=== PATIENT | female | born 1980 | race Caucasian/White ===

== ENCOUNTER 2016-11-03 14:02 | Emergency (ER) | payer OTHER ==
[~2016-11-03] VITALS: Ht 157.5 cm; Wt 104.0 kg
[2016-11-03 14:09] VITALS: Ht 157.5 cm; Wt 104.0 kg
--- NOTE | 2016-11-03 14:44 | ERD ---
ER Documentation Chief Complaint Date/Time DATE: 11/03/16 TIME: 14:44 Chief Complaint sent from md for eval, no heart tones HPI 36-year-old female who is approximately 12 weeks is sent here by her PCP for evaluation. Per PCPs note, no heart tone was noted on Doppler. Patient is SAB 1, LMP 08/05/2016. Patient denies vaginal bleeding, denies pelvic pain. Denies fever or chills. ROS All systems reviewed and are negative except as per history of present illness. PMhx/Soc Medical and Surgical Hx: pt denies Medical Hx, pt denies Surgical Hx Hx Alcohol Use: No Hx Substance Use: No Hx Tobacco Use: No Smoking Status: Never smoker Physical Exam Vitals Vital Signs Date Time Temp Pulse Resp B/P Pulse Ox O2 Delivery O2 Flow Rate FiO2 11/03/16 14:09 98.6 66 18 112/67 98 Physical Exam General: Well-developed, well-nourished, conscious and coherent, in no distress Skin: Warm and dry without rash, good texture and turgor Head: Normocephalic without evidence of trauma Eyes: Sclera and conjunctivae normal; pupils equal, round, and reactive to light; extraocular movements are intact Chest: Normal AP diameter. Good expansion without retractions. Nontender. Lungs are clear to auscultate bilaterally with good tidal volume Heart: Regular rate and rhythm. No murmur, rub, or gallops heard Abdomen: Soft and nontender without masses, guarding, or rebound. Bowel sounds are active. No hepatosplenomegaly Back: Without spinal or CVA tenderness Pelvis: Nontender to palpation and stable to compression Extremities: Full range of motion. Good strength bilaterally. No clubbing, cyanosis, or edema. Peripheral pulses are intact. Sensation intact Neuro: Alert and oriented 4, GCS 15. Cranial nerves grossly intact. Motor and sensory exams nonfocal. Moves all extremities. Speech clear. Gait normal Results 24 hrs Laboratory Tests Test 11/03/16 14:34 Lab Scanned Report [id number] PROCEDURE: US OB. CLINICAL INDICATION: No heart tones detected TECHNIQUE: Transabdominal and endovaginal imaging of the gravid uterus is available for review COMPARISON: None available FINDINGS: There is a single intrauterine demonstrating a heart rate of 156 bpm. The crown-rump length equals 6.0 cm, giving an estimated gestational age of 12 weeks 4 days by ultrasound criteria. No subchorionic hemorrhage is identified. The ovaries are unremarkable. IMPRESSION: Single live intrauterine with an estimated gestational age of 12 weeks 4 days by ultrasound criteria and an estimated date of delivery of 2017. RPTAT: HH .Mirella Escobar MD, MD Date Time Electronically viewed and signed by .Mirella Escobar MD, MD on 11/03/2016 13 :51 .G/ CC: CORNELIA VELAZQUEZ. JACQUARD PLATE MAKER Procedures/MDM Note: There was a mistake regarding patient's account, laboratory testing and imaging results may not be linked automatically. OB ultrasound showed a single intrauterine with heart rate of 156 bpm , estimated gestational age of 12 weeks 4 days. Slight leukocytosis of 11.1 is noted on CBC, otherwise unremarkable. UA has 2+ ketones, [place] [address].0. All are within normal limits. Patient is informed of the ultrasound and testing results. Patient advised to follow-up with her PCP or OB for continued care. Patient appears well, stable for discharge and outpatient management. Medical decision making shared with patient and family. Education provided to patient and family. Patient and family expressed understanding of the plan. Medications on discharge: None. Follow-up: Primary care provider in 2-3 days or return to ED if worse. Disclaimer: Inadvertent spelling and grammatical errors are likely due to EHR/ dictation software use and do not reflect on the overall quality of patient care. Also, please note that the electronic time recorded on this note does not necessarily reflect the actual time of the patient encounter. Departure Diagnosis: Primary Impression: Intrauterine normal Trimester: first trimester Qualified Code: Z34.91 - Normal in first trimester Condition: Stable Patient Instructions: , Established, Normal Symptoms Referrals: TECHNICAL SUPPORT SPECIALIST [place] [id number] [id number] OFFICE FAX KARLO ESCOTO [address] [place] [address] [address] MARTÍNEZ [address] [address] [place] [address] [address] [facility] [address] [facility] [address] [address] MAKI [facility] [address] [place] [address] [facility] [address] [place] [address] [phone] [address] [facility] [address] - DR HERNANDEZ ALLYSSA [address] [facility]. [address], [place] [address] [address] [place], [place] [address] [facility]. [address], [place] [address] [address] JENKINS, [facility] [address] [place], [place] [address] Additional Instructions: Call your primary care doctor TOMORROW for an appointment during the next 2-3 days.See the doctor sooner or return here if your condition worsens before your appointment time. CORNELIA VELAZQUEZ NP Nov 03, 2016 14:44
== END 2016-11-03 15:10 | disposition home or self-care (01) ==
LOC: FTE 14:02
DX: Z34.91 Encounter for supervision of normal pregnancy, unspecified, first trimester (principal)

== ENCOUNTER 2016-12-21 16:07 | Emergency (ER) | payer OTHER ==
[~2016-12-21] VITALS: Ht 160 cm; Wt 103.0 kg
[2016-12-21 16:16] VITALS: Ht 160 cm; Wt 103.0 kg
--- NOTE | 2016-12-21 19:19 | ERD ---
ER Documentation Chief Complaint Chief Complaint vaginal discharge this morning, 19 weeks HPI This 1 miscarriage,19 week female present to ED for evaluation of watery d/c pt is having to wear a pad, called OB told to cone to ED , denies vaginal bleeding, back pain, reports low pelvic pain ROS All systems reviewed and are negative except as per history of present illness. Allergies Allergies: Coded Allergies: No Known Allergy (Unverified , 12/21/16) PMhx/Soc Medical and Surgical Hx: pt denies Medical Hx, pt denies Surgical Hx Hx Alcohol Use: No Hx Substance Use: No Hx Tobacco Use: No Smoking Status: Never smoker Physical Exam Vitals Vital Signs Date Time Temp Pulse Resp B/P Pulse Ox O2 Delivery O2 Flow Rate FiO2 12/21/16 16:16 98.4 75 18 120/60 99 Physical Exam Const: She well-hydrated well-appearing 2 para 0 19 week female in no acute distress Head: Eyes: ENT: Normal External Ears, Nose and Mouth. Neck: Resp: Clear to auscultation bilaterally through the rhonchi Cardio: Regular rate and rhythm, no murmurs Abd: 's abdomen Pelvic Exam: Coating And Baking Operator present External Genitalia: Normal Skin, labia majora and labia minora normal with no rash lesion or discharge noted. PH paper returns from green to yellow indicating a pH of 4.5, and no evidence of amniotic fluid Back: No midline or flank tenderness Ext: No cyanosis, or edema Neur: Awake and alert Psych: Normal Mood and Affect Result Diagram: 12/21/161939 Results 24 hrs Laboratory Tests Test 12/21/16 19:40 White Blood Count 12.510^3/ul Red Blood Count 4.7510^6/ul Hemoglobin 13.1g/dl Hematocrit 39.3% Mean Corpuscular Volume 82.7fl Mean Corpuscular Hemoglobin 27.6pg Mean Corpuscular Hemoglobin Concent 33.3g/dl Red Cell Distribution Width 13.6% Platelet Count 32035^3/UL Mean Platelet Volume 10.7fl Neutrophils % 68.9% Lymphocytes % 25.0% Monocytes % 3.8% Eosinophils % 1.8% Basophils % 0.2% Nucleated Red Blood Cells % 0.0/100WBC Neutrophils # 8.610^3/ul Lymphocytes # 3.110^3/ul Monocytes # 0.510^3/ul Eosinophils # 0.210^3/ul Basophils # 0.010^3/ul Nucleated Red Blood Cells # 0.010^3/ul Urine Color YELLOW Urine Clarity CLOUDY Urine pH 5.0 Urine Specific Nesbit 1.017 Urine Ketones 2+mg/dL Urine Nitrite NEGATIVEmg/dL Urine Bilirubin NEGATIVEmg/dL Urine Urobilinogen NEGATIVEmg/dL Urine Leukocyte Esterase 1+Brendan/ul Urine Microscopic RBC 13/HPF Urine Microscopic WBC 16/HPF Urine Squamous Epithelial Cells FEW/HPF Urine Bacteria MANY/HPF Urine Mucus MODERATE/HPF Urine Hemoglobin NEGATIVEmg/dL Urine Glucose NEGATIVEmg/dL Urine Total Protein 1+mg/dl Beta HCG, Quantitative 89092.0mIU/ml Current Medications Medications (Trade) Dose Ordered Sig/Bernard Route PRN Reason Start Time Stop Time Status Last Admin Dose Admin Acetaminophen (Tylenol Tab) 650 mg ONCE ONCE PO 12/21/16 19:30 12/21/16 19:31 DC 12/21/16 19:37 Interpretation text CBC shows no evidence of hemorrhage elevated at 12.5, Mrs. positive for leukocytosis suggestive of infection Procedures/MDM ROCEDURE: Obstetrical ultrasound greater than 14 weeks CLINICAL INDICATION: Clear vaginal discharge TECHNIQUE: Real time sonographic imaging of the gravid uterus is performed transabdominally and multiple static smith scale and Doppler images are submitted for review as are measurements. The images are reviewed on the PACS. COMPARISON: No relevant exams are available FINDINGS: There is a single living intrauterine gestation in cephalic presentation. The heart beat is estimated at 159 bpm. The measurements are as follows: AC: 14.45 cm FL: 3.12 cm The head is too caudal in position for measurement. Estimated gestational age is 19 weeks 5 days. The estimated date of delivery is 05/12/2017. The estimated weight is 320 grams. Placenta is posterior and grade 1. There is no evidence of placenta previa or abruption. A uterine contraction is demonstrated. The amniotic fluid is normal, the maximum vertical pocket estimated at 4.8 cm. RPTAT:HJJR IMPRESSION: 1. Single viable intrauterine gestation estimated at 19 weeks 5 days with the estimated date of delivery 05/12/2017. 2. Normal amount of amniotic fluid the maximum vertical pocket 4.8 cm. 3. head is too caudal in position for accurate head circumference and biparietal diameter measurements. Physician Florentino Date Time Electronically viewed and signed by Physician Florentino on 12/21/2016 23:14 This 36-year-old 2 para 0 female presents to the emergency department for evaluation of clear odorless vaginal discharge using a akosua-pad to keep underwear clean, patient denies any vaginal bleeding, nausea, vomiting, dysuria , or pelvic pain. Emergency room course includes history and physical exam, patient reports 19 weeks , diagnostic lab testing, no evidence of age, WBCs slightly elevated at 12, urinalysis positive for leukocytosis suggestive of infection, vaginal inspection proves normal vaginal anatomy, no speculum or digital exam performed. PH paper shows a change from green to yellow indicating pH of 4.5. OB ultrasound greater than 14 weeks impression single viable intrauterine gestation approximately 19 weeks 5 days with estimated date of delivery on 05/12/2017, normal amount of amniotic fluid. The maximum vertical pocket 4.8 cm. head is to coddled in position for accurate head circumference. This case discussed with supervising physician Dr. Mccauley, patient will be discharged home to follow-up with SYSTEMS ANALYST ENGINEER. Treated with Keflex 500 mg 3 times daily 7 days for urinary tract infection, all other findings are normal. Return to emergency department for vaginal bleeding, cramping, or if symptoms fail to improve as anticipated Patient is stable with no new complaints during ER course, clinically there is no current evidence to suggest meningitis, sepsis, acute abdomen, threatened miscarriage, pyelonephritis or any other emergent condition appearing to require further evaluation or hospitalization. I feel the patient is stable for discharge at this time. I have discussed results, examination findings, the treatment plan with the patient and family present prior to discharge. Indications for emergent reevaluation, side effects of medication were also discussed. All questions were answered. Patient verbalizes understanding and agrees with plan of care. Departure Diagnosis: Primary Impression: UTI (urinary tract infection) Urinary tract infection type: acute cystitis Hematuria presence: without hematuria Qualified Code: N30.00 - Acute cystitis without hematuria Condition: Good Patient Instructions: Understanding Urinary Tract Infections (UTIs) Additional Instructions: Thank you for for coming to [facility] for your care today. Please ask your nurse or provider if you have questions about your care today and do not leave until all your questions have been answered. Please use any medications given as directed and follow-up with your doctor (or the doctor you were referred to) in the next 2-3 days. If you do not have a primary care doctor you may follow up at the [facility] (listed below). You may also use motrin and tylenol as needed for fever and/or pain unless instructed otherwise by your provider or nurse. Indications for more urgent follow-up have been discussed, but you may return to the Emergency Department at ANY time for any worrisome or worsening symptoms. If you have abdominal pain, please know that no test or exam you received is perfect and you should follow up within 8 hours for continued pain. If you had any imaging studies today, such as an X-Ray or CT Scan, these studies will be reviewed later by a radiologist. You will be called if there are important findings that were not identified today, so make sure the contact information you provided at registration is correct. If you received any narcotic pain control medicine today, such as Vicodin, Morphine or Dilaudid, your coordination and judgment may be affected for a number of hours. Please do not drive or operate heavy machinery, and you may want someone to assist you at home. If you were given a prescription for narcotic medication, be aware that it is very addictive- use sparingly and only if necessary. NIKKI SANDY Dec 21, 2016 19:19
[2016-12-21] MEDS ORDERED: ACETAMINOPHEN 325 MG TAB PO ONE (19:30)
--- NOTE | 2016-12-21 23:14 | RADRPT ---
PROCEDURE: Obstetrical ultrasound greater than 14 weeks CLINICAL INDICATION: Clear vaginal discharge TECHNIQUE: Real time sonographic imaging of the gravid uterus is performed transabdominally and mu ltiple static smith scale and Doppler images are submitted for review as are measurements. The image s are reviewed on the PACS. COMPARISON: No relevant exams are available FINDINGS: There is a single living intrauterine gestation in cephalic presentation. The heart beat is estimated at 159 bpm. The measurements are as follows: AC:14.45 cm FL:3.12 cm The head is too caudal in position for measurement. Estimated gestational age is 19 weeks 5 days. The estimated date of delivery is 05/12/2017. The estimated weight is 320 grams. Placenta is posterior and grade 1. There is no evidence of placenta previa or abruption. A uterine contraction is demonstrated. The amniotic fluid is normal, the maximum vertical pocket estimated at 4.8 cm. RPTAT:HJJR IMPRESSION: 1. Single viable intrauterine gestation estimated at 19 weeks 5 days with the estimated date of deli very 05/12/2017. 2. Normal amount of amniotic fluid the maximum vertical pocket 4.8 cm. 3. head is too caudal in position for accurate head circumference and biparietal diameter eric surements. Physician Florentino Date Time Electronically viewed and signed by Physician Florentino on 12/21/2016 23:14 /
[2016-12-21] MEDS ORDERED: ACET500C5 PO (23:34)
[2016-12-21] MEDS ORDERED: CEPH-443 PO (23:34)
[2016-12-21 23:45] VITALS: BP 125/73; PULSE 81; RESP 18
== END 2016-12-21 23:45 | disposition home or self-care (01) ==
LOC: FTE 16:07
DX: O23.12 Infections of bladder in pregnancy, second trimester (principal); N89.8 Other specified noninflammatory disorders of vagina; R10.2 Pelvic and perineal pain; Z3A.19 19 weeks gestation of pregnancy
CPT/HCPCS: 36415; 76805; 81001; 84702; 85025; Z7502; Z7610

== ENCOUNTER 2017-03-18 12:53 | Outpatient (CLI) | END 2017-03-18 16:25 | disposition home or self-care (01) ==

== ENCOUNTER 2017-03-20 08:06 | Outpatient (CLI) | END 2017-03-20 09:03 | disposition home or self-care (01) ==

== ENCOUNTER 2017-04-27 09:23 | Outpatient (CLI) | END 2017-04-27 11:15 | disposition home or self-care (01) ==

== ENCOUNTER 2017-05-01 09:13 | Outpatient (CLI) | END 2017-05-01 10:15 | disposition home or self-care (01) ==

== ENCOUNTER 2017-05-11 06:35 | Inpatient (IN) | END 2017-05-15 18:50 | disposition home or self-care (01) | DRG 766 ==

== ENCOUNTER 2018-01-24 16:49 | Emergency (ER) | END 2018-01-24 19:47 | disposition home or self-care (01) ==

== ENCOUNTER 2018-01-25 04:34 | Emergency (ER) | END 2018-01-25 06:40 | disposition home or self-care (01) ==

== ENCOUNTER 2018-08-15 17:20 | Emergency (ER) | payer OTHER ==
[~2018-08-15] VITALS: Ht 165.1 cm; Wt 105.6 kg
[~2018-08-15 17:20] MED LIST: CIPR-193 PO; DICY10CA40 PO; HYDR-3980 PO; IBUP-1561 PO; IBUP800T48 PO; LEVO112T56 PO; ONDA4TAB8 PO; PRED20TA PO; PREN1TAB79 PO
[2018-08-15 17:52] VITALS: BP 131/72; PULSE 75; RESP 18; Ht 165.1 cm; Wt 105.6 kg
[2018-08-15] MEDS ORDERED: ACETAMINOPHEN 500 MG TAB PO STA (19:56)
[2018-08-15] MEDS ORDERED: ACET500C5 PO (21:24)
[2018-08-15] MEDS ORDERED: DICY10CA40 PO (21:24)
--- NOTE | 2018-08-16 02:23 | ERD ---
ER Documentation Chief Complaint Chief Complaint RIGHT ABD. PAIN FOR A WEEK, DIARRHEA XX 2 DAYS. HX OF GALLBLADDER SURGERY HPI Patient is a 38-year-old female with past medical history of cholecystectomy who presents the ER for concerns of right upper quadrant pain for the last week. Patient states the pain is localized to her right upper quadrant. Patient denies any chest pain or shortness of breath. Patient also reports having diarrhea for the last 2 days. She states she has 10 episodes of loose, nonbloody stools. Patient denies any nausea, vomiting, fevers or chills. Patient denies any recent travel. No recent antibiotic use. Patient is tolerating p.o. fluids. ROS All systems reviewed and are negative except as per history of present illness. Medications Home Meds Active Scripts Acetaminophen* (Tylophen*) 500 Mg Capsule, 1 CAP PO Q6H PRN for PAIN AND OR E LEVATED TEMP, #20 CAP Prov:ALEKS JAY PA-C 08/15/18 Dicyclomine HCl (Dicyclomine HCl) 10 Mg Capsule, 10 MG PO TID PRN for ABDOMINAL CRAMPING, #20 CAP Prov:ALEKS JAY PA-C 08/15/18 Ciprofloxacin Hcl* (Ciprofloxacin Hcl*) 250 Mg Tablet, 250 MG PO BID for 7 Days, #14 TAB Prov:COREY CHANDRA MD 01/30/18 Dicyclomine HCl (Dicyclomine HCl) 10 Mg Capsule, 10 MG PO TID PRN for ABDOMINAL CRAMPING, #20 CAP Prov:MICHELLE DIAMOND 01/25/18 Ibuprofen* (Motrin*) 800 Mg Tab, 800 MG PO Q6H PRN for PAIN AND OR ELEVATED TEMP, #30 TAB Prov:MICHELLE DIAMOND 01/25/18 Ondansetron Hcl* (Zofran*) 4 Mg Tablet, 4 MG PO Q8H PRN for NAUSEA AND/OR VOMITING, #30 TAB Prov:MICHELLE DIAMOND 01/25/18 Hydrocodone/Acetaminophen ([place] 10-325 Tablet) 1 Each Tablet, 1 TAB PO Q6H PRN for PAIN, #20 TAB Prov:MICHELLE DIAMOND 01/25/18 Ibuprofen* (Motrin*) 400 Mg Tab, 400 MG PO Q8, #15 TAB Prov:COREY CHANDRA MD 01/24/18 Prednisone* (Prednisone*) 20 Mg Tab, 40 MG PO DAILY for 4 Days, TAB Prov:COREY CHANDRA MD 01/24/18 Reported Medications Vit W-Ca,Fe,FA(<1 mg) ( Vitamins) 1 Each Tablet, 1 EACH PO DAILY, TAB 03/20/17 Levothyroxine Sodium (Levo-T) 112 Mcg Tablet, 112 MCG PO DAILY, TAB 03/18/17 Allergies Allergies: Coded Allergies: Fish Containing Products (Verified Allergy, Intermediate, SWELLING, 04/26 08/13) PMhx/Soc History of Surgery: Yes (c- section, RAEGAN) Anesthesia Reaction: No Hx Neurological Disorder: No Hx Respiratory Disorders: No Hx Cardiac Disorders: No Hx Psychiatric Problems: No Hx Miscellaneous Medical Probl: Yes (HYPOTHROID) Hx Alcohol Use: No Hx Substance Use: No Hx Tobacco Use: No Smoking Status: Never smoker FmHx Family History: No diabetes Physical Exam Vitals Vital Signs Date Temp Pulse Resp B/P (MAP) Pulse Ox O2 O2 Flow FiO2 Time Delivery Rate 08/15/18 98.1 75 18 131/72 99 17:52 (91) Physical Exam GENERAL: Well-developed, well-nourished female. Appears in no acute distress. Speaking in full sentences. HEAD: Normocephalic, atraumatic. EYES: Pupils are equally reactive bilaterally. EOMs grossly intact. No conjunc tival erythema. ENT: Moist mucous membranes. No uvula deviation. No kissing tonsils. NECK: Supple. No meningismus. Normal range of motion of the neck. LUNG: Clear to auscultation bilaterally. No rhonchi, wheezing, rales or coarse breath sounds. HEART: Regular rate and rhythm. No murmurs, rubs or gallops. ABDOMEN: Minimally tender to palpation of right upper quadrant. Positive bowel sounds in all four quadrants. No rebound tenderness, no guarding. (-) McBurney's point tenderness. No CVA tenderness. EXTREMITIES: Equal pulses bilaterally. No peripheral clubbing, cyanosis or edema. No unilateral leg swelling. NEUROLOGIC: Alert and oriented. Moving all four extremities without any difficulty. Normal speech. Steady gait. SKIN: Normal color. Warm and dry. No rashes or lesions. Result Diagram: 08/15/18201708/15/182017 Results 24 hrs Laboratory Tests Test 08/15/18 19:54 08/15/18 20:00 08/15/18 20:18 POC Beta HCG, Qualitative NEGATIVE Urine Color YELLOW Urine Clarity SLIGHTLY CLOUDY Urine pH 5.0 Urine Specific [place] 1.021 Urine Ketones NEGATIVE mg/dL Urine Nitrite NEGATIVE mg/dL Urine Bilirubin NEGATIVE mg/dL Urine Urobilinogen NEGATIVE mg/dL Urine Leukocyte Esterase NEGATIVE Brendan/ul Urine Microscopic RBC 0 /HPF Urine Microscopic WBC 6 /HPF Urine Squamous Epithelial Cells FEW /HPF Urine Mucus FEW /HPF Urine Hemoglobin NEGATIVE mg/dL Urine Glucose NEGATIVE mg/dL Urine Total Protein NEGATIVE mg/dl White Blood Count 10.7 10^3/ul Red Blood Count 4.96 10^6/ul Hemoglobin 12.6 g/dl Hematocrit 40.3 % Mean Corpuscular Volume 81.3 fl Mean Corpuscular Hemoglobin 25.4 pg Mean Corpuscular 31.3 g/dl Hemoglobin Concent Red Cell Distribution Width 14.3 % Platelet Count 378 10^3/UL Mean Platelet Volume 10.4 fl Immature Granulocytes % 0.300 % Neutrophils % 58.3 % Lymphocytes % 32.6 % Monocytes % 4.4 % Eosinophils % 4.0 % Basophils % 0.4 % Nucleated Red Blood Cells % 0.0 /100WBC Immature Granulocytes # 0.030 10^3/ul Neutrophils # 6.3 10^3/ul Lymphocytes # 3.5 10^3/ul Monocytes # 0.5 10^3/ul Eosinophils # 0.4 10^3/ul Basophils # 0.0 10^3/ul Nucleated Red Blood Cells # 0.0 10^3/ul Sodium Level 141 mmol/L Potassium Level 4.3 mmol/L Chloride Level 105 mmol/L Carbon Dioxide Level 25 mmol/L Anion Gap 11 Blood Urea Nitrogen 12 mg/dl Creatinine 0.60 mg/dl Est Glomerular Filtrat > 60 mL/min Rate mL/min Glucose Level 113 mg/dl Calcium Level 9.2 mg/dl Total Bilirubin 0.7 mg/dl Direct Bilirubin 0.00 mg/dl Indirect Bilirubin 0.7 mg/dl Aspartate Amino 17 IU/L Transf (AST/SGOT) Alanine 7 IU/L Aminotransferase (ALT/SGPT) Alkaline Phosphatase 69 IU/L Total Protein 8.9 g/dl Albumin 4.7 g/dl Globulin 4.20 g/dl Albumin/Globulin Ratio 1.11 Lipase 205 U/L Current Medications Medications Dose Sig/Bernard Start Time Status Last (Trade) Ordered Route PRN Stop Time Admin Dose Reason Admin 1,000 mg ONCE STAT 08/15/18 DC 08/15/18 Acetaminophen PO 19:56 20:03 (Tylenol 08/15/18 19:57 Tab) Procedures/MDM MEDICAL DECISION MAKING: This is a 38-year-old female with past medical history of cholecystectomy presents the ER for concerns of right upper quadrant pain and diarrhea. Vital signs were reviewed. Patient is afebrile. On exam, patient did have mild tenderness to palpation in the right upper quadrant. Patient had no rebound or guarding. Patient was noted to have a PETTY report. Per PETTY. report, patient does have a care plan due to chronic abdominal pain. In addition, patient was seen at [facility] for concerns of abdominal pain, diarrhea, weakness and vomiting at [facility]. Patient was seen on July 12, 2018, August 01, 2018, August 04, 2018. Patient was given Tylenol for her pain. Blood work was obtained. CBC showed no evidence of systemic infection or severe anemia. CMP showed no evidence of electrolyte abnormalities, severe acidosis, alkalosis, renal failure, or liver disease. Lipase showed no evidence of acute pancreatitis. UA showed no evidence of acute infection or hematuria. Urine test was negative. At this time for the patient presentation most consistent with a right upper quadrant pain and diarrhea. Differential diagnosis included was not limited to acute coronary syndrome, AAA, mesenteric ischemia, lower lobe pneumonia, DKA, bowel perforation, choledocholithiasis, ascending cholangitis, hepatic abscess, pancreatitis, PUD, gastritis, GERD, splenic rupture, diverticulitis, UTI, pyelonephritis, nephrolithiasis, appendicitis, constipation, , ectopic , PID, ovarian torsion or tubo-ovarian abscess. Patient was nontoxic, non-ill appearing prior to discharge. PRESCRIPTIONS: Tylenol DISCHARGE: At this time, patient is stable for discharge and outpatient management. I have instructed the patient to follow-up with his/her primary care physician in 1-2 days. I have instructed the patient to promptly return to the ER at any time for any new or worsening symptoms including increased pain, nausea, vomiting, diarrhea, fever, weakness or LOC. The patient and/or family expressed understanding of and agreement with this plan. All questions were answered. Home care instructions were provided. Disclaimer: Inadvertent spelling and grammatical errors are likely due to EHR/dictation software use and do not reflect on the overall quality of patient care. Also, please note that the electronic time recorded on this note does not necessarily reflect the actual time of the patient encounter. Departure Diagnosis: Primary Impression: RUQ abdominal pain Additional Impression: Diarrhea Diarrhea type: unspecified type Qualified Codes: R19.7 - Diarrhea, unspecified Condition: Fair Patient Instructions: Abdominal Pain, Treating Diarrhea Referrals: [facility] YOU HAVE RECEIVED A MEDICAL SCREENING EXAM AND THE RESULTS INDICATE THAT YOU DO NOT HAVE A CONDITION THAT REQUIRES URGENT TREATMENT IN THE EMERGENCY DEPARTMENT. FURTHER EVALUATION AND TREATMENT OF YOUR CONDITION CAN WAIT UNTIL YOU ARE SEEN IN YOUR DOCTORS OFFICE WITHIN THE NEXT 1-2 DAYS. IT IS YOUR RESPONSIBILITY TO MAKE AN APPOINTMENT FOR FOLOW-UP CARE. IF YOU HAVE A PRIMARY DOCTOR --you should call your primary doctor and schedule an appointment IF YOU DO NOT HAVE A PRIMARY DOCTOR YOU CAN CALL OUR PHYSICIAN REFERRAL HOTLINE AT IF YOU CAN NOT AFFORD TO SEE A PHYSICIAN YOU CAN CHOSE FROM THE FOLLOWING [facility] [address] [facility]. [facility] [address] [facility]. [facility] [address] [facility] [address] [facility] [facility] [address] [facility]. [facility]. [address] [facility]. [facility] YOU HAVE RECEIVED A MEDICAL SCREENING EXAM AND THE RESULTS INDICATE THAT YOU DO NOT HAVE A CONDITION THAT REQUIRES URGENT TREATMENT IN THE EMERGENCY DEPARTMENT. FURTHER EVALUATION AND TREATMENT OF YOUR CONDITION CAN WAIT UNTIL YOU ARE SEEN IN YOUR DOCTORS OFFICE WITHIN THE NEXT 1-2 DAYS. IT IS YOUR RESPONSIBILITY TO MAKE AN APPOINTMENT FOR FOLOW-UP CARE. IF YOU HAVE A PRIMARY DOCTOR --you should call your primary doctor and schedule and appointment IF YOU DO NOT HAVE A PRIMARY DOCTOR YOU CAN CALL OUR PHYSICIAN REFERRAL HOTLINE AT . IF YOU CAN NOT AFFORD TO SEE A PHYSICIAN YOU CAN CHOSE FROM THE FOLLOWING [facility] INSTITUTIONS: [facility] [address] [place] [address] [facility] [address] [place] [address] [facility] [address] [place] [address] Additional Instructions: Stool studies advised on outpatient basis if diarrhea persists. Call your primary care doctor TOMORROW for an appointment during the next 1-2 days.See the doctor sooner or return here if your condition worsens before your appointment time. ALEKS JAY PA-C Aug 16, 2018 02:23
== END 2018-08-15 21:30 | disposition home or self-care (01) ==
LOC: FTE 17:20
DX: R10.11 Right upper quadrant pain (principal); E03.9 Hypothyroidism, unspecified
CPT/HCPCS: 36415; 80053; 81001; 81003; 81025; 83690; 85025; 99283

== ENCOUNTER 2018-08-18 19:47 | Emergency (ER) | payer OTHER ==
[~2018-08-18] VITALS: Ht 165.1 cm; Wt 105.7 kg
[~2018-08-18 19:47] MED LIST changes: +ACET500C5 PO
[2018-08-18 19:55] VITALS: Ht 165.1 cm; Wt 105.7 kg
[2018-08-18] MEDS ORDERED: FAMOTIDINE 20 MG TAB PO STA (20:40)
--- NOTE | 2018-08-18 20:44 | ERD ---
ER Documentation Chief Complaint Chief Complaint RUQ ab pain x 3 days HPI Patient is a 38 years old female with PMHx of cholecystomy presenting to the clinic for persistent RUQ pain. Patient was seen on 08/15/2018 for similar symptoms and had a comprehensive work up. CBC, CMP, Lipase, Urinalysis were unremarkable with negative urine test. Patient reports that she tried to f/u with her PCP but could not get an appointment fast enough and came to the ER. Patient is requesting RUQ abdominal ultrasound. Patient denies fever, chills, night sweats, nausea, emesis, bloating, hematochezia, melena. Patient admits to watery diarrhea and reports of yellow discoloration without odor. Patient reports 5 watery diarrhea per day. ROS All systems reviewed and are negative except as per history of present illness. Medications Home Meds Active Scripts Acetaminophen* (Tylophen*) 500 Mg Capsule, 1 CAP PO Q6H PRN for PAIN AND OR ELEVATED TEMP, #20 CAP Prov:ALEKS JAY PA-C 08/15/18 Dicyclomine HCl (Dicyclomine HCl) 10 Mg Capsule, 10 MG PO TID PRN for ABDOMINAL CRAMPING, #20 CAP Prov:ALEKS JAY PA-C 08/15/18 Ciprofloxacin Hcl* (Ciprofloxacin Hcl*) 250 Mg Tablet, 250 MG PO BID for 7 Days, #14 TAB Prov:COREY CHANDRA MD 01/30/18 Dicyclomine HCl (Dicyclomine HCl) 10 Mg Capsule, 10 MG PO TID PRN for ABDOMINAL CRAMPING, #20 CAP Prov:MICHELLE DIAMOND 01/25/18 Ibuprofen* (Motrin*) 800 Mg Tab, 800 MG PO Q6H PRN for PAIN AND OR ELEVATED TEMP, #30 TAB Prov:MICHELLE DIAMOND 01/25/18 Ondansetron Hcl* (Zofran*) 4 Mg Tablet, 4 MG PO Q8H PRN for NAUSEA AND/OR VOMITING, #30 TAB Prov:MICHELLE DIAMOND 01/25/18 Hydrocodone/Acetaminophen ([place] 10-325 Tablet) 1 Each Tablet, 1 TAB PO Q6H PRN for PAIN, #20 TAB Prov:MICHELLE DIAMOND 11/30/18 Ibuprofen* (Motrin*) 400 Mg Tab, 400 MG PO Q8, #15 TAB Prov:COREY CHANDRA MD 01/24/18 Prednisone* (Prednisone*) 20 Mg Tab, 40 MG PO DAILY for 4 Days, TAB Prov:COREY CHANDRA MD 01/24/18 Reported Medications Vit W-Ca,Fe,FA(<1 mg) ( Vitamins) 1 Each Tablet, 1 EACH PO DAILY, TAB 03/20/17 Levothyroxine Sodium (Levo-T) 112 Mcg Tablet, 112 MCG PO DAILY, TAB 03/18/17 Allergies Allergies: Coded Allergies: Fish Containing Products (Verified Allergy, Intermediate, SWELLING, 05/11/17) PMhx/Soc History of Surgery: Yes (c- section, RAEGAN) Anesthesia Reaction: No Hx Neurological Disorder: No Hx Respiratory Disorders: No Hx Cardiac Disorders: No Hx Psychiatric Problems: No Hx Miscellaneous Medical Probl: Yes (HYPOTHROIDISM) Hx Alcohol Use: No Hx Substance Use: No Hx Tobacco Use: No Smoking Status: Never smoker FmHx Family History: No diabetes, No coronary disease, No other Physical Exam Vitals Vital Signs Date Temp Pulse Resp B/P (MAP) Pulse Ox O2 O2 Flow FiO2 Time Delivery Rate 08/18/18 99.2 78 18 145/67 100 19:55 (93) Physical Exam Const: No acute distress. Head: Atraumatic Eyes: Normal Conjunctiva Resp: Clear to auscultation bilaterally Cardio: Regular rate and rhythm, no murmurs Abd: Soft, non tender, non distended. Normal bowel sounds. Negative McBurney's point tenderness, Rovsing sign, Abhinav sign, Yoo Kitchen sign, no guarding, no rebound tenderness. Skin: No petechiae or rashes Back: No midline or flank tenderness. Negative CVAT. Neur: Awake and alert Psych: Normal Mood and Affect Results 24 hrs Current Medications Medications Dose Sig/Bernard Start Time Status Last (Trade) Ordered Route PRN Stop Time Admin Dose Reason Admin Famotidine 20 mg ONCE STAT 08/18/18 DC 08/18/18 (Pepcid) PO 20:40 20:48 08/18/18 20:43 Ibuprofen 800 mg ONCE ONCE 08/18/18 DC 08/18/18 (Motrin) PO 21:00 20:48 08/18/18 21:01 Procedures/MDM Patient was seen and evaluated for persistent RUQ pain. Lab workup was not done as patient had a negative workup 3 days ago. Patient was advised no emergent necessity for abdominal ultrasound. RUQ abdominal ultrasound as per patient's request revealed Interval cholecystectomy. No fluid collection in the gallbladder fossa. No biliary duct dilatation. Fatty change of the liver. mild Hepatomegaly. Patient was given pepcid 20mg and Ibuprofen 800mg PO with improvement of symptoms. Patient was advised about possible dyspepsia. Patient is stable and ready for discharge. Patient was instructed to F/U with PCP. Low suspicion for sepsis, appendicitis, colitis, pancreatitis. Patient will be discharged with Pepcid. Departure Diagnosis: Primary Impression: Abdominal pain Abdominal location: right upper quadrant Qualified Codes: R10.11 - Right upper quadrant pain Condition: Stable Patient Instructions: Abdominal Pain Referrals: [facility] Additional Instructions: Patient advised to return to the ED immediately for new or worsening symptoms. Patient advised to follow up with primary care provider in the next 24-48 hours. Patient verbalized understanding and agrees with treatment plan and course of action. If patient has no primary care they may follow up with [facility] [address] [place] [id number] or [facility] [address] [place] [address] or [facility] [address] [place] [address] GILMAR SMITH PA-C Aug 18, 2018 20:44
[2018-08-18] MEDS ORDERED: IBUPROFEN 800 MG TAB PO ONE (21:00)
[2018-08-18] MEDS ORDERED: FAMO-96 PO (22:14)
[2018-08-18 22:31] VITALS: BP 123/82; PULSE 68; RESP 16
== END 2018-08-18 22:32 | disposition home or self-care (01) ==
LOC: FTE 19:47
DX: R10.11 Right upper quadrant pain (principal); E03.9 Hypothyroidism, unspecified
CPT/HCPCS: 76705